=== PATIENT | male | born 1990 | race Two or more races ===

== ENCOUNTER 2018-01-06 09:27 | Emergency (ER) | payer OTHER ==
[~2018-01-06] VITALS: Ht 172.7 cm; Wt 100.7 kg
[~2018-01-06 09:27] MED LIST: AMOX1TAB12 PO; ATARAX25 MG PO; LOTRISONE CREAM45 GM TP; ZYRTEC10 MG PO
== END 2018-01-06 11:56 | disposition home or self-care (01) ==
LOC: ER 09:27
DX: H00.14 Chalazion left upper eyelid (principal)

== ENCOUNTER 2018-11-28 04:02 | Emergency (ER) | payer OTHER ==
[~2018-11-28] VITALS: Ht 170.2 cm; Wt 88.5 kg
[2018-11-28] MEDS ORDERED: ZYNCOF 20-400120 ML PO (08:16)
[2018-11-28] MEDS ORDERED: DOLOGESIC 500-1 EACH PO (08:16)
[2018-11-28] MEDS ORDERED: ALBUTEROL2.5 MG/3 M IH (08:16)
== END 2018-11-28 08:31 | disposition home or self-care (01) ==
LOC: ER 04:02
DX: J06.9 Acute upper respiratory infection, unspecified (principal); R50.9 Fever, unspecified

== ENCOUNTER 2018-11-29 09:37 | Outpatient (CLI) | payer OTHER ==
[~2018-11-29 09:37] MED LIST changes: +ALBUTEROL2.5 MG/3 M IH; +DOLOGESIC 500-1 EACH PO; +ZYNCOF 20-400120 ML PO
== END 2018-11-29 09:41 | disposition home or self-care (01) ==
LOC: LAB 09:37
DX: J20.0 Acute bronchitis due to Mycoplasma pneumoniae (principal)

== ENCOUNTER 2018-11-29 14:26 | Outpatient (CLI) | payer OTHER | END 2018-11-29 14:28 | disposition home or self-care (01) | LOC: RAD 14:26 | DX: J01.80 Other acute sinusitis (principal) ==

== ENCOUNTER 2018-12-23 08:45 | Outpatient (CLI) | payer OTHER | END 2018-12-23 09:59 | disposition home or self-care (01) | LOC: RAD 08:45 | DX: M25.571 Pain in right ankle and joints of right foot (principal) ==

== ENCOUNTER → 2020-01-12 07:20 | Outpatient (CLI) | payer OTHER | END | disposition home or self-care (01) | LOC: LAB 07:20 | DX: Z28.3 Underimmunization status (principal) ==

== ENCOUNTER 2020-04-06 01:14 | Emergency (ER) | payer OTHER ==
[~2020-04-06] VITALS: Ht 172.7 cm; Wt 108.9 kg
[2020-04-06] MEDS ORDERED: ZITHROMAX500 MG PO (01:39)
[2020-04-06] MEDS ORDERED: CORTISPORIN EAR10 M1 OPHT (01:39)
[2020-04-06] MEDS ORDERED: KETO10TA2 PO (01:39)
[2020-04-06] MEDS ORDERED: CIPRODEX OTIC7.5 ML OT (01:39)
== END 2020-04-06 01:40 | disposition home or self-care (01) ==
LOC: ER 01:14
DX: H66.92 Otitis media, unspecified, left ear (principal); H60.8X2 Other otitis externa, left ear

== ENCOUNTER 2021-01-08 21:25 | Emergency (ER) | payer OTHER ==
[~2021-01-08] VITALS: Ht 172.7 cm; Wt 111.1 kg
[~2021-01-08 21:25] MED LIST changes: +CIPRODEX OTIC7.5 ML OT; +CORTISPORIN EAR10 M1 OPHT; +KETO10TA2 PO; +ZITHROMAX500 MG PO
[2021-01-09] MEDS ORDERED: ZYNCOF 20-400120 ML PO (04:36)
[2021-01-09] MEDS ORDERED: ZITHROMAX500 MG PO (04:36)
[2021-01-09] MEDS ORDERED: ALBUTEROL2.5 MG/3 M IH (04:36)
[2021-01-09] MEDS ORDERED: MEDROL8 MG PO (04:36)
== END 2021-01-09 04:42 | disposition home or self-care (01) ==
LOC: ER 21:25
DX: J45.998 Other asthma (principal); J06.9 Acute upper respiratory infection, unspecified

== ENCOUNTER 2021-05-08 08:05 | Outpatient (CLI) | payer OTHER ==
[~2021-05-08 08:05] MED LIST changes: +MEDROL8 MG PO
== END 2021-05-08 08:07 | disposition home or self-care (01) ==
LOC: LAB 08:05
PROVIDERS: ATTEND Internal Medicine Cardiovascular Disease
DX: B20 Human immunodeficiency virus [HIV] disease (principal); R53.83 Other fatigue

== ENCOUNTER 2021-06-17 07:19 | Outpatient (CLI) | payer OTHER | END 2021-06-17 18:00 | disposition home or self-care (01) | LOC: LAB 07:19 | PROVIDERS: ATTEND Emergency Medicine Pediatric Emergency Medicine | DX: Z03.818 Encounter for observation for suspected exposure to other biological agents ruled out (principal) ==

== ENCOUNTER 2021-06-27 08:00 | Outpatient (CLI) | payer OTHER | END 2021-06-27 08:30 | disposition home or self-care (01) | LOC: PPH VACUNA 08:00 | DX: Z23 Encounter for immunization (principal) ==

== ENCOUNTER 2021-07-18 08:00 | Outpatient (CLI) | payer OTHER | END 2021-07-18 08:15 | disposition home or self-care (01) | LOC: PPH VACUNA 08:00 | PROVIDERS: ATTEND Emergency Medicine Pediatric Emergency Medicine | DX: Z23 Encounter for immunization (principal) ==

== ENCOUNTER 2021-08-15 08:00 | Outpatient (CLI) | payer OTHER | END 2021-08-15 08:30 | disposition home or self-care (01) | LOC: PPH VACUNA 08:00 | PROVIDERS: ATTEND Emergency Medicine Pediatric Emergency Medicine | DX: Z23 Encounter for immunization (principal) ==

== ENCOUNTER → 2021-08-19 12:06 | Outpatient (CLI) | payer OTHER | END | disposition home or self-care (01) | LOC: LAB 12:06 | PROVIDERS: ATTEND Internal Medicine Infectious Disease | DX: B01.9 Varicella without complication (principal); Z00.00 Encounter for general adult medical examination without abnormal findings ==

== ENCOUNTER 2021-09-27 07:24 | Emergency (ER) | payer OTHER ==
[~2021-09-27] VITALS: Ht 172.7 cm; Wt 113.4 kg
== END 2021-09-27 10:38 | disposition home or self-care (01) ==
LOC: ER 07:24
DX: L02.422 Furuncle of left axilla (principal)

== ENCOUNTER 2021-10-23 20:49 | Emergency (ER) | payer OTHER ==
[~2021-10-23] VITALS: Ht 172.7 cm; Wt 114.3 kg
== END 2021-10-23 22:29 | disposition home or self-care (01) ==
LOC: ER 20:49
DX: B34.9 Viral infection, unspecified (principal); R19.7 Diarrhea, unspecified; Z20.822 Contact with and (suspected) exposure to COVID-19

== ENCOUNTER 2021-12-24 08:00 | Outpatient (CLI) | payer OTHER | END 2021-12-24 08:30 | disposition home or self-care (01) | LOC: PPH VACUNA 08:00 | PROVIDERS: ATTEND Emergency Medicine Pediatric Emergency Medicine | DX: Z23 Encounter for immunization (principal) ==

== ENCOUNTER 2022-11-09 04:36 | Emergency (ER) | payer OTHER ==
[~2022-11-09] VITALS: Ht 170.2 cm; Wt 108.9 kg
[2022-11-09] MEDS ORDERED: CEPHALEXIN500 MG PO (06:02)
[2022-11-09] MEDS ORDERED: KETO10TA2 PO (06:02)
[2022-11-09] MEDS ORDERED: MUPIROCIN1 G1 TOP ×2 (06:02→06:03)
== END 2022-11-09 06:20 ==
LOC: ER 04:36
DX: L73.2 Hidradenitis suppurativa (principal)

== ENCOUNTER 2022-11-18 07:21 | Emergency (ER) | payer OTHER ==
[~2022-11-18] VITALS: Ht 172.7 cm; Wt 108.9 kg
[~2022-11-18 07:21] MED LIST changes: +CEPHALEXIN500 MG PO; +MUPIROCIN1 G1 TOP
[2022-11-18] MEDS ORDERED: KETO10TA2 PO (08:54)
[2022-11-18] MEDS ORDERED: BACTRIM 400-801 EACH PO (08:54)
== END 2022-11-18 09:05 | disposition home or self-care (01) ==
LOC: ER 07:21
DX: L02.412 Cutaneous abscess of left axilla (principal)

== ENCOUNTER 2022-11-18 09:13 | Outpatient (CLI) | payer OTHER ==
[~2022-11-18 09:13] MED LIST changes: +BACTRIM 400-801 EACH PO
== END 2022-11-18 09:39 | disposition home or self-care (01) ==
LOC: LAB 09:13
PROVIDERS: ATTEND General Practice
DX: L02.412 Cutaneous abscess of left axilla (principal)

== ENCOUNTER 2022-12-13 05:20 | Emergency (ER) | payer OTHER ==
[~2022-12-13] VITALS: Ht 172.7 cm; Wt 108.9 kg
[2022-12-13] MEDS ORDERED: TUSNEL LIQUID178 ML PO (07:52)
[2022-12-13] MEDS ORDERED: PAXLOVID 300-11 EACH PO (07:52)
[2022-12-13] MEDS ORDERED: PROAIR RESPICL90 MCG IH (07:52)
[2022-12-13] MEDS ORDERED: DOLOGEN CAPLET1 EACH PO (07:52)
== END 2022-12-13 08:00 | disposition home or self-care (01) ==
LOC: ER 05:20
DX: U07.1 COVID-19 (principal); R50.9 Fever, unspecified

== ENCOUNTER 2023-01-29 | Outpatient (CLI) | payer OTHER ==
[~2023-01-29] MED LIST changes: +DOLOGEN CAPLET1 EACH PO; +PAXLOVID 300-11 EACH PO; +PROAIR RESPICL90 MCG IH; +TUSNEL LIQUID178 ML PO
== END 2023-01-29 00:15 | disposition home or self-care (01) ==
LOC: PPH VACUNA
DX: Z23 Encounter for immunization (principal)

== ENCOUNTER 2023-03-31 07:15 | Emergency (ER) | payer OTHER ==
[~2023-03-31] VITALS: Ht 172.7 cm; Wt 108.9 kg
[2023-03-31] MEDS ORDERED: BACTRIM DS TAB1 EACH (08:29)
[2023-03-31] MEDS ORDERED: KETO10TA2 PO ×2 (08:29→09:43)
[2023-03-31] MEDS ORDERED: AMOX-CLAV 875-1 EACH PO (09:43)
== END 2023-03-31 11:12 | disposition home or self-care (01) ==
LOC: ER 07:15
DX: H66.92 Otitis media, unspecified, left ear (principal)

== ENCOUNTER 2023-04-03 15:37 | Emergency (ER) | payer OTHER ==
[~2023-04-03] VITALS: Ht 167.6 cm; Wt 108.9 kg
[~2023-04-03 15:37] MED LIST changes: +AMOX-CLAV 875-1 EACH PO; +BACTRIM DS TAB1 EACH
== END 2023-04-03 20:13 | disposition home or self-care (01) ==
LOC: ER 15:37
DX: H66.92 Otitis media, unspecified, left ear (principal)

== ENCOUNTER 2023-05-20 23:23 | Emergency (ER) | payer OTHER ==
[~2023-05-20] VITALS: Ht 172.7 cm; Wt 111.1 kg
[2023-05-21] MEDS ORDERED: MUPIROCIN1 G1 TOP (00:24)
[2023-05-21] MEDS ORDERED: CEPHALEXIN500 MG PO (00:24)
== END 2023-05-21 00:47 | disposition home or self-care (01) ==
LOC: ER 23:23
DX: S61.203A Unspecified open wound of left middle finger without damage to nail, initial encounter (principal); S61.205A Unspecified open wound of left ring finger without damage to nail, initial encounter; W45.8XXA Other foreign body or object entering through skin, initial encounter; Y93.89 Activity, other specified; Y92.89 Other specified places as the place of occurrence of the external cause; Y99.8 Other external cause status

== ENCOUNTER 2023-11-01 23:51 | Emergency (ER) | payer OTHER ==
[~2023-11-01] VITALS: Ht 172.7 cm; Wt 113.4 kg
== END 2023-11-02 05:46 | disposition home or self-care (01) ==
LOC: ER 23:51
DX: J06.9 Acute upper respiratory infection, unspecified (principal)

== ENCOUNTER → 2023-12-21 06:27 | Outpatient (CLI) | payer OTHER ==
[2023-12-21 06:58] LABS: HEMATOCRIT 43.4 % (39.0-48.0); HEMOGLOBIN 15.1 g/dL (13-16.00); MEAN CORPUSCULAR HEMOGLOBIN 27.8 pg (27.00-32.0); MEAN CORPUSCULAR HGB CONC 34.8 g/dl (32.0-36.0); PLATELET COUNT 288 K/uL (150-450); RED BLOOD COUNT 5.43 M/uL (4.00-6.00); RED CELL DISTRIBUTION WIDTH 13.4 % (11.5-14.5)
[2023-12-21 07:09] LABS: PH,URINE 5.5 (5.0-8.0); URINE APPEARANCE Clear; URINE BILIRRUBIN Negative (NEGATIVE); URINE BLOOD Negative; URINE COLOR Yellow; URINE GLUCOSE Negative (NEGATIVE); URINE LEUKOCYTE Negative; URINE NITRATE Negative; URINE PROTEIN Negative (NEGATIVE)
[2023-12-21 07:10] LABS: URINE RBC 6.4 uL (0.0-20.8)
[2023-12-21 07:29] LABS: URINE BACTERIA 3.7 uL (0.0-1933); URINE CRYSTALS MANY /HPF
[2023-12-21 07:42] LABS: ALBUMIN 3.9 gm/dL (3.4-5.0); BILIRUBIN TOTAL 0.62 mg/dL (0.3-1.2); CHOL HDL RATIO 3.9 (0-5.0); CREATININE SERUM 1.18 mg/dL (0.70-1.30); FREE TRIODOTIRONINE 2.94 pg/ml (2.18-3.98); GFR 70.25; GLOBULINA 3.2 G/DL (2.4-3.5); POTASSIUM 4.06 mEq/L (3.5-5.1); T4 FREE 0.84 NG/ML (0.76-1.46); TOTAL PROTEIN 7.1 gm/dL (6.4-8.2); TSH 1.38 uIU/mL (0.358-3.74)
[2023-12-22 12:08] LABS: chla t Negative (Negative); neiss Negative (Negative)
== END | disposition home or self-care (01) ==
LOC: LAB 06:27
PROVIDERS: ATTEND Internal Medicine
DX: E55.9 Vitamin D deficiency, unspecified (principal); Z13.1 Encounter for screening for diabetes mellitus; Z13.220 Encounter for screening for lipoid disorders; Z13.29 Encounter for screening for other suspected endocrine disorder; Z11.3 Encounter for screening for infections with a predominantly sexual mode of transmission

== ENCOUNTER 2024-01-05 03:15 | Emergency (ER) | payer OTHER ==
[~2024-01-05] VITALS: Ht 172.7 cm; Wt 113.4 kg
[2024-01-05] MEDS ORDERED: NAPHAZOLINE HCL/PHENIRAMINE 20 DR/ML DROPS OP STA (04:35)
[2024-01-05] MEDS ORDERED: GENTAMICIN SULFATE 0.15 MG/DR DROPS 5ML OP STA (04:36)
[2024-01-05] MEDS ORDERED: TETRACAINE HCL 20 DR/ML DROPS OP STA (04:36)
[2024-01-05] MEDS ORDERED: GENTAMICIN SULFA5 ML OTIC (05:48)
[2024-01-05] MEDS ORDERED: REDNESS RELIEF15 M2 OP (05:48)
== END 2024-01-05 05:53 ==
LOC: ER 03:15
DX: H10.10 Acute atopic conjunctivitis, unspecified eye (principal)

== ENCOUNTER 2024-02-08 14:00 | Outpatient (CLI) | payer OTHER ==
[~2024-02-08 14:00] MED LIST changes: +GENTAMICIN SULFA5 ML OTIC; +REDNESS RELIEF15 M2 OP
== END 2024-02-08 14:10 | disposition home or self-care (01) ==
LOC: PPH VACUNA 14:00
PROVIDERS: ATTEND Emergency Medicine Pediatric Emergency Medicine
DX: Z23 Encounter for immunization (principal)
CPT/HCPCS: 90653; G0008

== ENCOUNTER 2024-07-21 14:26 | Outpatient (CLI) | payer OTHER | END 2024-07-21 14:40 | disposition home or self-care (01) | LOC: LAB 14:26 | PROVIDERS: ATTEND Preventive Medicine Occupational Medicine | DX: B19.10 Unspecified viral hepatitis B without hepatic coma (principal) ==

== ENCOUNTER 2024-11-03 03:42 | Emergency (ER) | payer OTHER ==
[~2024-11-03] VITALS: Ht 172.7 cm; Wt 108.9 kg
[2024-11-03 03:54] VITALS: BP 132/86; O2SAT 100
[2024-11-03 08:29] LABS: HEMATOCRIT 44.3 % (39.0-48.0); MEAN CELL VOLUME 82.3 fL (80.0-100.00); MEAN CORPUSCULAR HEMOGLOBIN 27.9 pg (27.00-32.0); MEAN CORPUSCULAR HGB CONC 33.8 g/dl (32.0-36.0); PLATELET COUNT 256 K/uL (150-450); RED BLOOD COUNT 5.38 M/uL (4.00-6.00); RED CELL DISTRIBUTION WIDTH 13.6 % (11.5-14.5)
== END 2024-11-03 09:32 | disposition home or self-care (01) ==
LOC: ER 03:44
DX: R53.81 Other malaise (principal); J06.9 Acute upper respiratory infection, unspecified; Z20.822 Contact with and (suspected) exposure to COVID-19

== ENCOUNTER 2025-01-09 07:25 | Outpatient (CLI) | payer OTHER ==
[2025-01-10 13:09] LABS: VARICELLA ZOSTER VIRUS IGG Reactive (Non Reactive)
== END 2025-01-09 07:33 | disposition home or self-care (01) ==
LOC: LAB 07:25
PROVIDERS: ATTEND Internal Medicine
DX: Z23 Encounter for immunization (principal)